=== PATIENT | female | born 1990 | race Caucasian/White ===

== ENCOUNTER → 2019-10-15 15:38 | Outpatient (BNVA) | payer OTHER, MEDICAID, SELFPAY | PROVIDERS: Family Provider Nurse Practitioner Family; Visit Provider Nurse Practitioner | DX: Q61.3 Polycystic kidney, unspecified (principal); F32.9 Major depressive disorder, single episode, unspecified; E04.9 Nontoxic goiter, unspecified; Z30.41 Encounter for surveillance of contraceptive pills | CPT/HCPCS: 80053; 84443; 85025 ==

== ENCOUNTER → 2020-05-02 14:21 | Outpatient (BNVA) | payer OTHER, MEDICAID, SELFPAY | PROVIDERS: Family Provider Nurse Practitioner Family; Visit Provider Nurse Practitioner | DX: I15.1 Hypertension secondary to other renal disorders (principal); N28.89 Other specified disorders of kidney and ureter; F53.0 Postpartum depression; Q61.3 Polycystic kidney, unspecified; E04.9 Nontoxic goiter, unspecified | CPT/HCPCS: 80053; 80061; 84439; 84443; 84481 ==

== ENCOUNTER 2020-05-30 06:41 | Outpatient (CLI) | payer OTHER, SELFPAY ==
--- NOTE | 2020-05-30 07:15 | US_ITS ---
WS: [id number] THYROID ULTRASOUND (TI-RADS CRITERIA) History: Enlarged thyroid. Technique: Ultrasound examination of the thyroid and adjacent soft tissues is performed. FINDINGS: RIGHT thyroid lobe: 4.4 x 1.8 x 1.7 cm. LEFT thyroid lobe: 4.0 x 1.6 x 1.8 cm. Isthmus: 0.3 cm. Estimated total number of nodules greater than or equal to 1 cm: 0. Number of spongiform nodules greater than or equal to 2 cm not described below (TR1): 0. Number of mixed cystic and solid nodules greater than or equal to 1.5 cm not described below (TR2): 0 . Hypoechoic nodule less than 1 cm inferior LEFT thyroid. US/US thyroid [id number] Impression: TR1 Recommendation:No FNA or follow-up.
== END 2020-05-30 06:42 | disposition home or self-care (01) ==
LOC: US 06:44
PROVIDERS: Family Provider Nurse Practitioner Family; Visit Provider Nurse Practitioner
DX: E04.9 Nontoxic goiter, unspecified (principal)
CPT/HCPCS: 76536